=== PATIENT | female | born 1955 | race Hispanic/Latino ===

== ENCOUNTER 2022-04-07 03:16 | Emergency (ER) | payer MEDICARE, OTHER ==
[~2022-04-07] VITALS: Ht 152.4 cm; Wt 77.6 kg
[2022-04-07] MEDS ORDERED: KETOROLAC 30MG VIAL (30MG/ML) ONE (03:39)
[2022-04-07 04:00] LABS: BASOPHILS % (AUTO) 0.3 % (0.0-5.0); EOSINOPHILS % (AUTO) 6.4 % (0.0-8.0); HEMATOCRIT 42.7 % (36-48); LYMPHOCYTES % (AUTO) 40.2 % (21.0-51.0); MEAN CORPUSCULAR HGB CONC 32.8 g/dL (32.0-36.0); MEAN CORPUSCULAR VOLUME 88.6 fL (79-99); MONOCYTES % (AUTO) 8.6 % (3.0-13.0); NEUTROPHILS % (AUTO) 44.2 % (40.0-77.0); PLATELET COUNT (AUTO) 184 K/uL (130-400); RED BLOOD CELL COUNT(AUTO) 4.82 MIL/uL (4.00-5.50); RED CELL DISTRIBUTION WIDTH 13.1 % (11.0-15.5); WHITE BLOOD COUNT (AUTO) 9.2 K/uL (4.8-10.8)
[2022-04-07] MEDS ORDERED: KETOROLAC 60 MG VIAL (30MG/ML) IM ONE (04:00)
[2022-04-07] MEDS ORDERED: CYCLOBENZAPRINE HCL 10 MG TABLET PO ONE (04:00)
[2022-04-07 04:12] LABS: CREATININE 0.7 mg/dL (0.5-1.5)
[2022-04-07 04:16] LABS: ALBUMIN 3.7 g/dL (3.5-5.0); MAGNESIUM 1.7 mg/dL (1.80-2.40); TOTAL PROTEIN, SERUM 7.3 g/dL (6.0-8.3)
[2022-04-07 04:28] LABS: B-TYPE NATRIURETIC PEPTIDE 45 pg/mL (0-100)
[2022-04-07] MEDS ORDERED: LIDOP TD (04:41)
[2022-04-07] MEDS ORDERED: CYCL10TA16 PO (04:41)
[2022-04-07 04:42] VITALS: BP 138/71
[2022-04-07] MEDS ORDERED: LIDOCAINE 5% TOPICAL PATCH TP ONE (05:00)
== END 2022-04-07 04:58 | disposition home or self-care (01) ==
LOC: EDH 03:16
DX: M62.838 Other muscle spasm (principal); M54.2 Cervicalgia; E11.9 Type 2 diabetes mellitus without complications; I10 Essential (primary) hypertension; Z79.1 Long term (current) use of non-steroidal anti-inflammatories (NSAID); Z90.49 Acquired absence of other specified parts of digestive tract
CPT/HCPCS: 99285; 71045; 83735; 84484; 80053; 83880; 85025; 36415; 96372; 93005; J1885

== ENCOUNTER 2025-08-08 23:01 | Emergency (ER) | payer OTHER ==
[~2025-08-08] VITALS: Ht 152.4 cm; Wt 67.1 kg
[~2025-08-08 23:01] MED LIST: CYCL10TA16 PO; LIDOP TD
--- NOTE | 2025-08-08 23:16 | ERN ---
ED Note History of Present Illness Stated Complaint: C/O ORAL THRUSH X 1 WK W/RAPID HEART RATE Chief Complaint: Multiple Complaints Time Seen by MD: 23:13 Dictation: This is a 70-year-old female who stated that she has been experiencing off and on palpitations and anxiety sensation for the past 1 week. It does not last too long. No fever chills or rigors. No chest pain pressure diaphoresis presyncope or syncope. She stated that she has had a problem with oral thrush and in the past has taken nystatin with a severe difficulty and once she saw her mouth she began getting more anxious and rapid heart rate. She apparently had a broken crown after which she developed oral infection. She denied any dysuria hematuria burning micturition. No known thyroid problems and no vomitings or diarrhea Temperature 97.9 pulse 87 respirations 20 blood pressure 183/92 with a pulse oximetry of 100% on room air Her chronic medical problems include diabetes mellitus, hypertension and history of cholecystectomy. Allergies: Coded Allergies: No Known Allergies (Unverified Allergy, Unknown, 04/07/22) Home Meds Active Scripts Lidocaine (Lidoderm Patch 5%) 1 Patch Patch, 1 PATCH TD DAILY for 7 Days, #7 ADH.PATCH 0 Refills Prov:LOIS CABRERA MD 04/07/22 Cyclobenzaprine HCl (Flexeril) 10 Mg Tab, 10 MG PO TID, #15 TAB Prov:LOIS CABRERA MD 04/07/22 Past Medical History Past Medical History: Diabetes-Type II, Hypertension Surgical History: Cholecystectomy, Family History: Negative Social History: Negative, Lives with family History: Not Applicable RN Note Reviewed/Agreed w/PFSH: Yes Review of System Dictation Constitutional: Negative for fever,chills, and weight loss Eyes: Negative for injury, pain,redness, and discharge ENT: Negative for injury,pain or swelling broken crown and gingivitis positive for oral thrush Cardiovascular: Negative for chest pain,, and edema positive for anxiety and palpitations Respiratory: Negative for shortness of breath, cough, and wheezing, Abdomen/GI: Negative for abdominal pain, nausea, vomiting, diarrhea, and constipation Back: Negative for injury and pain : Negative for injury, bleeding and discharge MS/Extremity: Negative for injury and deformity Skin: Negative for rash, and discoloration Neuro: Negative for headache, weakness, numbness, tingling, and seizure Psych: Negative for suicide ideation, homicidal ideation, and hallucinations Initial Vital Sign VS Vital Signs Date Time Temp Pulse Resp B/P (MAP) Pulse Ox O2 Delivery O2 Flow Rate FiO2 08/08/25 23:06 97.9 87 20 183/92 100 Room Air Physical Exam Dictation General: awake, alert, NAD Head/Face: Normocephalic, atraumatic Eyes: PERRL, EOMI, vision at baseline ENT: oral cavity clear, TMs clear, poor dentition with a dental caries in the lower jaw left side oral cavity has diffuse erythema and hot to see the backside but small patches of white coating. Neck: Trachea midline, supple, no nuchal rigidity Cardiovascular: RRR, normal S1/S2, No MRGs, no JVD Respiratory: CTAB, no respiratory distress, No rales or wheezes Abdomen: Soft, non-tender, non-distended, normal bowel sounds, no guarding or rebound. Skin: Warm, dry, normal turgor, no rash MS/Extremity: Pulses equal, no cyanosis, neurovascular intact, FROM Neuro: COAx4, GCS 15, strength 5/5, CN 2-12 intact, normal cerebellar exam, normal gait, Psych: Normal behavior, mood, and affect normal Extremities-trace edema without any palpable cords, Homans sign is negative Results (Laboratory/Radiology) Laboratory/Radiology Laboratory Tests Test 08/09/25 00:25 White Blood Count 8.1 K/uL (4.8-10.8) Red Blood Count 4.73 MIL/uL (4.00-5.50) Hemoglobin 14.1 g/dL (12.0-16.0) Hematocrit 42.4 % (36-48) Mean Corpuscular Volume 89.6 fL (79-99) Mean Corpuscular Hemoglobin 29.8 pg (27.0-33.0) Mean Corpuscular Hemoglobin Concent 33.3 g/dL (32.0-36.0) Red Cell Distribution Width 12.6 % (11.0-15.5) Platelet Count 213 K/uL (130-400) Mean Platelet Volume 11.0 fL (7.5-10.5) H Immature Granulocyte % (Auto) 0.2 % (0-1) Neutrophils (%) (Auto) 62.9 % (40.0-77.0) Lymphocytes (%) (Auto) 28.5 % (21.0-51.0) Monocytes (%) (Auto) 7.7 % (3.0-13.0) Eosinophils (%) (Auto) 0.5 % (0.0-8.0) Basophils (%) (Auto) 0.2 % (0.0-5.0) Neutrophils # (Auto) 5.1 K/uL (1.8-7.7) Lymphocytes # (Auto) 2.3 K/uL (1.0-4.8) Monocytes # (Auto) 0.6 K/uL (0.1-1.0) Eosinophils # (Auto) 0.04 K/uL (0.00-0.70) Basophils # (Auto) 0.02 K/uL (0.00-0.20) Absolute Immature Granulocyte (auto 0.02 K/uL (0-1) Nucleated Red Blood Cells 0.0 % (0.0-0.19) Urine Color COLORLESS (YELLOW) Urine Appearance CLEAR (CLEAR) Urine pH 6.0 (5.0-8.0) Urine Specific [place] 1.004 (1.001-1.031) Urine Protein NEGATIVE mg/dL (NEGATIVE) Urine Glucose (UA) NEGATIVE mg/dL (NEGATIVE) Urine Ketones 40 mg/dL (NEGATIVE) H Urine Occult Blood NEGATIVE (NEGATIVE) Urine Nitrate NEGATIVE (NEGATIVE) Urine Bilirubin NEGATIVE mg/dL (NEGATIVE) Urine Urobilinogen 0.2 mg/dL (0.2-1.0) Urine Leukocyte Esterase 250 Edyta/uL (NEGATIVE) H Urine RBC 0-1 /HPF (0-1) Urine WBC 11-25 /HPF (0-1) H Urine Squamous Epithelial Cells RARE /HPF (0-2) Urine Bacteria RARE /HPF (None Seen) Sodium Level 136 mmol/L (136-145) Potassium Level 3.8 mmol/L (3.5-5.1) Chloride Level 97 mmol/L (101-111) L Carbon Dioxide Level 27 mmol/L (21-32) Blood Urea Nitrogen 12 mg/dL (7-18) Creatinine 0.7 mg/dL (0.5-1.0) Glomerular Filtration Rate Calc 93 mL/min (>90) Random Glucose 171 mg/dL (70-105) H Total Calcium 9.2 mg/dL (8.5-10.1) Total Creatine Kinase 79 U/L (21-232) Troponin I High Sensitivity 7.2 ng/L (4-50) Thyroid Stimulating Hormone (TSH) 5.90 uIU/mL (0.36-3.74) H Labs Reviewed?: Yes EKG Comment: Twelve lead EKG done on 08/08/2025 at 11:08 p.m. shows a heart rate of 84, PA interval 139, QRS 83, QT/QTC 407/481. Impression normal sinus rhythm with a nonspecific ST-T changes in the lead 3. No acute ST-T elevations or deep ST depressions noted. Left anterior fascicular block EKG rhythm strip shows a normal sinus rhythm with a no acute STT wave changes noted. Interpreted by ER MD Dr. Gilbert X-RAY Comment: REASON: Palpitations ORDERING PHYSICIAN: DOMINICK GILBERT MD PROCEDURE: CXR1VW - CHEST 1VW EXAM: CR Chest, 1 View. CLINICAL HISTORY: Palpitations COMPARISON: None provided. FINDINGS: LUNGS: The lungs show no infiltrate or other acute finding. PLEURAL SPACES: No pleural effusion or pneumothorax. MEDIASTINUM: Cardiac size and mediastinal contours are within normal limits. BONES: No aggressively appearing osseous lesion. IMPRESSION: No acute cardiopulmonary pathology is evident. /[place] DICTATED BY: YUN PARHAM Jr., MD DATE: 08/09/25124 ELECTRONICALLY SIGNED BY: YUN PARHAM Jr., MD DATE: 08/09/25124 ED Course ED Course Orders Procedure Category Date Status Time 12 Lead Ekg Tracing- EKG 08/08/25 Logged Technical 23:11 Cardiac Panel LAB 08/08/25 Complete 23:54 Cbc With Differential LAB 08/08/25 Complete 23:54 Basic Metabolic Panel LAB 08/08/25 Complete 23:54 Urinalysis Profile LAB 08/08/25 Complete 23:54 Thyroid Stimulating LAB 08/08/25 Complete Hormone 23:54 Chest 1vw RAD 08/08/25 Resulted 23:54 Culture Urine JOHANNA 08/09/25 In Process 00:41 Ceftriaxone 1g Vial PHA 08/09/25 Complete (Rocephine 1g Inj) 01:30 0.9%Nacl 1000ml (Ns PHA 08/09/25 Complete 1000ml) 01:30 Nystatin [id number] PHA 08/09/25 Complete Unit/Ml 5ml Ud 01:30 Current Medications Medications (Trade) Dose Ordered Sig/Larisa Route PRN Reason Start Time Stop Time Status Last Admin Dose Admin Ceftriaxone Sodium (ROCEphine 1G INJ) 1 gm ONCE ONCE IVPB 08/09/25 01:30 08/09/25 01:31 DC 08/09/25 01:24 Nystatin (NYSTatin 989665 UNIT/ML 5ML UDCUP) 10 ml ONCE ONCE PO 08/09/25 01:30 08/09/25 01:31 DC 08/09/25 01:24 Sodium Chloride 1,000 ml @ 0 mls/hr ONCE ONCE IV 08/09/25 01:30 08/09/25 01:31 DC 08/09/25 01:24 Vital Signs Date Time Temp Pulse Resp B/P (MAP) Pulse Ox O2 Delivery O2 Flow Rate FiO2 08/08/25 23:06 97.9 87 20 183/92 100 Room Air Medical Decision Making MDM Differential diagnosis: Volume depletion, sepsis, hyperthyroidism, recreational drug abuse, cardiac event, pulmonary thromboembolic disease, withdrawal from hypertension medication, anemia This is a 70-year-old female who stated that she has been experiencing off and on palpitations and anxiety sensation for the past 1 week. It does not last too long. No fever chills or rigors. No chest pain pressure diaphoresis presyncope or syncope. She stated that she has had a problem with oral thrush and in the past has taken nystatin with a severe difficulty and once she saw her mouth she began getting more anxious and rapid heart rate. She apparently had a broken crown after which she developed oral infection. She denied any dysuria hematuria burning micturition. No known thyroid problems and no vomitings or diarrhea Temperature 97.9 pulse 87 respirations 20 blood pressure 183/92 with a pulse oximetry of 100% on room air Her chronic medical problems include diabetes mellitus, hypertension and history of cholecystectomy. Forty-two a.m. urinalysis is abnormal with positive ketones positive leuko esterase WBCs 11-25 and positive bacteria. 1:00 a.m. CBC is with a normal limits, BNP 7 is with a normal limits. Glucose is 171. TSH is 5.9. Chest x-ray-no acute intra thoracic abnormalities I updated the patient and her sister on all the labs and she indicated to me that she had similar oral thrush before due to bad teeth and she has difficulty taking nystatin so I reassured her that I will be able to give her Diflucan I also informed her about plans to give a L of fluids as well as IV antibiotics for the UTI. She will be discharged to home on p.o. antibiotic Rationale: Tests considered and ordered secondary to shared decision making i nclude: Previous outside records reviewed: Old ER visits. Risk of complication and/or morbidity or mortality of patient management: None Medications-Per medication reconciliation Need for hospitalization: Patient does not meet criteria for hospitalization. Need for emergency major/minor surgery: No There are no social concerns with this patient. Prescription drug management Prescriptions will include symptomatic care Patient's prior external medical records from other ER visits were reviewed by me as indicated. Prior testing and results from previous visits were reviewed. Prior tests were taken into account with medical decision making and resource utilization, independent historian/historians were used to obtain complete medical history. I independently interpreted the test that were performed, results were reviewed by me and considered findings on radiology if ordered. Medical management and examination interpretation discussions were had by me with other qualified healthcare professionals as indicated for the patient's care. Problem List Problem List: (1) Palpitations (2) Oral candidiasis (3) UTI (urinary tract infection) DX & DISP Disposition: Discharge Departure Impression: Primary Impression: UTI (urinary tract infection) Additional Impressions: Palpitations, Oral candidiasis Condition: Stable Scripts Fluconazole (Fluconazole) 100 Mg Tablet 1 TAB PO DAILY for 7 Days, #7 TAB 0 Refills Prov: DOMINICK GILBERT MD 08/09/25 Nitrofurantoin Monohyd/M-Cryst (Macrobid 100 mg Capsule) 100 Mg Capsule 1 CAP PO BID for 7 Days, #14 CAP 0 Refills Prov: DOMINICK GILBERT MD 08/09/25 Additional Instructions: Patient and the caregiver have been informed of all the diagnostic tests and the imaging conducted during the today's visit to the emergency room and has verbalized understanding of the results I have personally reviewed and interpreted all diagnostic exams performed here in the ER today as well as the vital signs documented by the nursing staff. The patient is now being discharged to home and should follow up with the primary care physician or the specialist as directed by the ER staff. Referrals: SELF,REFERRAL (PCP) DOMINICK GILBERT MD Aug 08, 2025 23:16
--- NOTE | 2025-08-09 00:25 | HMCIMG ---
EXAM: CR Chest, 1 View. CLINICAL HISTORY: Palpitations COMPARISON: None provided. FINDINGS: LUNGS: The lungs show no infiltrate or other acute finding. PLEURAL SPACES: No pleural effusion or pneumothorax. MEDIASTINUM: Cardiac size and mediastinal contours are within normal limits. BONES: No aggressively appearing osseous lesion. IMPRESSION: No acute cardiopulmonary pathology is evident. /[place]
[2025-08-09 00:35] LABS: APPEARANCE,URINE CLEAR (CLEAR); GLUCOSE, URINE (UA) NEGATIVE (NEGATIVE); LEUKOCYTE ESTERASE ,URINE 250 Leu/uL (NEGATIVE); NITRATE,URINE NEGATIVE (NEGATIVE); OCCULT BLOOD,URINE NEGATIVE (NEGATIVE)
[2025-08-09 00:41] LABS: ADD UA MICROSCOPIC YES
[2025-08-09 00:43] LABS: IMMATURE GRANULOCYTE ABSOLUTE 0.02 K/uL (0-1); NUCLEATED RED BLOOD CELLS 0.0 % (0.0-0.19); PLATELET COUNT (AUTO) 213 K/uL (130-400); RED BLOOD CELL COUNT(AUTO) 4.73 MIL/uL (4.00-5.50); RED CELL DISTRIBUTION WIDTH 12.6 % (11.0-15.5); WHITE BLOOD COUNT (AUTO) 8.1 K/uL (4.8-10.8)
[2025-08-09 00:46] LABS: CREATININE 0.7 mg/dL (0.5-1.0); GLOMERULAR FILTR. RATE CALC 93.0 mL/min (>90); GLUCOSE,RANDOM 171.0 mg/dL (70-105); SODIUM SERUM 136.0 mmol/L (136-145); UREA NITROGEN, BLOOD 12.0 mg/dL (7-18)
[2025-08-09 00:57] LABS: SQUAMOUS EPITHELIAL CELL,UR RARE /HPF (0-2)
[2025-08-09 01:00] LABS: CREATINE KINASE, TOTAL 79.0 U/L (21-232)
[2025-08-09] MEDS: 0.9%NACL 1000ML 1,000 ML IV ONE (01:24)
[2025-08-09] MEDS ORDERED: NITR100C4 PO (01:44)
[2025-08-09] MEDS ORDERED: FLUC100T12 PO (01:44)
[2025-08-09 02:39] VITALS: BP 157/85; PULSE 80; RESP 18; TEMP 98.3; O2SAT 99
--- NOTE | 2025-08-09 07:13 | EKG ---
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
== END 2025-08-09 02:41 | disposition home or self-care (01) ==
LOC: EDH 23:01
DX: N39.0 Urinary tract infection, site not specified (principal); R00.2 Palpitations; B37.0 Candidal stomatitis; E11.9 Type 2 diabetes mellitus without complications; I10 Essential (primary) hypertension; Z90.49 Acquired absence of other specified parts of digestive tract; Z98.890 Other specified postprocedural states
CPT/HCPCS: 99285; 71045; 84443; 82550; 84484; 80048; 85025; 87086; 81001; 36415; 93005; 96374; J7030; J0696